=== PATIENT | female | born 1995 | race Caucasian/White ===

== ENCOUNTER 2018-01-06 14:24 | Emergency (ER) | payer OTHER ==
[2018-01-06] MEDS ORDERED: ALUMINUM/MAGNESIUM 30 ML SUS PO ONE (15:51)
[2018-01-06] MEDS ORDERED: LIDOCAINE HCL 2% (VISCOUS) 20 ML SOL MT ONE (15:51)
[2018-01-06 15:53] LABS: APPEARANCE,URINE Cloudy; BILIRUBIN,URINE 1+ (NEGATIVE); COLOR,URINE Red; GLUCOSE, URINE (UA) NEGATIVE (NEGATIVE); KETONES,URINE 1+ (NEGATIVE); NITRATE,URINE NEGATIVE (NEGATIVE); OCCULT BLOOD,URINE 3+ (NEG-TRACE)
[2018-01-06] MEDS ORDERED: ALUMINUM/MAGNESIUM 30 ML SUS ONE (16:02)
[2018-01-06] MEDS ORDERED: LIDOCAINE HCL 2% (VISCOUS) 20 ML SOL ONE (16:02)
[2018-01-06 16:09] LABS: BASOPHILS % (AUTO) 1 % (0-3); EOSINOPHILS % (AUTO) 0 % (0-9); HEMATOCRIT 40 % (35-47); HEMOGLOBIN 13.8 gm/dl (12.0-15.5); LYMPHOCYTES % (AUTO) 11.2 % (10-50); MEAN CORPUSCULAR HEMOGLOBIN 30.4 pg (27.0-32.0); MEAN CORPUSCULAR HGB CONC 34.9 gm/dl (32.0-36.0); MEAN CORPUSCULAR VOLUME 87 fL (81-99); MONOCYTES % (AUTO) 6.2 % (0-12)
[2018-01-06 16:17] LABS: LEUKOCYTE ESTERASE ,URINE 1+ (NEGATIVE)
[2018-01-06 16:23] VITALS: BP 131/82; PULSE 100; RESP 16; TEMP 97.8; O2SAT 100
[2018-01-06 16:23] LABS: ALBUMIN 4.5 gm/dl (3.4-5.0); BILIRUBIN,TOTAL 0.9 mg/dl (0.2-1.0); CARBON DIOXIDE 28.1 mEq/L (21-32); CREATININE 0.85 mg/dl (0.60-1.00); POTASSIUM 4.1 mMol/L (3.5-5.1); TOTAL PROTEIN 7.3 gm/dl (6.4-8.2)
[2018-01-06 16:28] LABS: BACTERIA TRACE (< 1+); CRYSTALS NEGATIVE (0-3 AVE/HPF); EPITHELIAL CELLS 0-3 (SQUAMOUS); ICTOTEST,URINE NEGATIVE (NEGATIVE); RBC,URINE TNTC (0-3AV/HPF)
[2018-01-06] MEDS ORDERED: LEVOFLOXACIN 25 MG/ML 750 MG in SODIUM CHLORIDE 0.9% 250 ML 150 ML IV ONE (17:14)
[2018-01-06] MEDS ORDERED: KETOROLAC TROMETHAMINE 30 MG/ML SOL IV ONE (17:14)
[2018-01-06] MEDS ORDERED: PROMETHAZINE HYDROCHLORIDE 25 MG/ML SOL IV ONE (17:15)
[2018-01-06] MEDS ORDERED: PROMETHAZINE HYDROCHLORIDE 25 MG/ML SOL ONE (17:32)
[2018-01-06] MEDS ORDERED: KETOROLAC TROMETHAMINE 30 MG/ML SOL ONE (17:32)
[2018-01-06] MEDS ORDERED: LEVOFLOXACIN 25 MG/ML SOL IV ONE (17:34)
[2018-01-06] MEDS: SODIUM CHLORIDE 0.9% FLUSH 10 ML SOL IV PRN ×2 (17:54→19:29)
[2018-01-06] MEDS ORDERED: MORPHINE SULFATE 10 MG/ML SOL IV ONE (19:24)
[2018-01-06] MEDS ORDERED: MORPHINE SULFATE 10 MG/ML SOL ONE (19:25)
== END 2018-01-06 20:05 | disposition home or self-care (01) | DRG 690 ==
LOC: ED 14:24
DX: N10 Acute pyelonephritis (principal)
CPT/HCPCS: 36415; 80053; 81001; 84703; 85025; 87077; 87088; 87186; 96365; 96374; 96375; 99284; 99285; J1885; J1956; J2270; J2550; A9270-GY